=== PATIENT | male | born 1995 | race Caucasian/White ===

== ENCOUNTER 2019-09-15 21:06 | Emergency (ER) | payer OTHER ==
[~2019-09-15] VITALS: Ht 172.7 cm; Wt 77.6 kg
[2019-09-15 21:22] VITALS: Ht 172.7 cm; Wt 77.6 kg
[2019-09-15 22:05] VITALS: BP 136/76
== END 2019-09-15 22:05 | disposition left against medical advice (07) ==
LOC: ED 21:06
DX: Z53.21 Procedure and treatment not carried out due to patient leaving prior to being seen by health care provider (principal)
CPT/HCPCS: Q0162